=== PATIENT | male | born 2000 | race African-American/Black ===

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

== ENCOUNTER 2023-02-17 09:52 | Inpatient (IN) | payer OTHER ==
[2023-02-17] MEDS ORDERED: IBUPROFEN 600 MG TABLET (FP) PO ONE ×2 (11:31→11:40)
[2023-02-17] MEDS ORDERED: ACETAMINOPHEN 500 MG TABLET (FP) PO ONE (11:31)
[2023-02-17] MEDS ORDERED: CYCLOBENZAPRINE HCL 10 MG TABLET (FP) PO ONE (11:31)
[2023-02-17] MEDS ORDERED: CYCLOBENZAPRINE HCL 10 MG TABLET (FP) ONE (11:40)
[2023-02-17] MEDS ORDERED: ACETAMINOPHEN 500 MG TABLET (FP) ONE (11:40)
[2023-02-17 12:21] LABS: HEMATOCRIT 40.3 % (35.4-49); HEMOGLOBIN 13.3 GM/dL (11.7-16.9); MCH 29.7 pg (25.7-33.7); MEAN CELL VOLUME 89.7 fl (80-96); PLATELET COUNT 124 10^3/uL (134-434); WHITE BLOOD COUNT 18.1 K/mm3 (4.0-10.0)
[2023-02-17 12:36] LABS: POTASSIUM 3.7 mmol/L (3.5-5.1)
[2023-02-17 12:42] LABS: CALCIUM 8.6 mg/dL (8.5-10.1)
[2023-02-17 12:43] LABS: ALBUMIN 3.4 g/dl (3.4-5.0); BLOOD UREA NITROGEN 10.6 mg/dL (7-18)
[2023-02-17 12:48] LABS: BILIRUBIN,TOTAL 1.2 mg/dL (0.2-1); TOT PROT 7.4 g/dl (6.4-8.2)
[2023-02-17] MEDS ORDERED: SODIUM CHLORIDE 0.9% 500 ML INFUS.BAG IV ONE ×2 (13:08→13:26)
[2023-02-17 13:09] LABS: ANISOCYTOSIS 0; MACROCYTOSIS 0
[2023-02-17] MEDS ORDERED: POTASSIUM CHLORIDE ORAL LIQUID 20 MEQ/15 ML PO ONE (13:27)
[2023-02-17] MEDS ORDERED: AMPICILLIN NA/SULBACTAM NA 3 GM in SODIUM CHLORIDE 100 ML IVPB ONE (13:27)
[2023-02-17] MEDS ORDERED: POTASSIUM CHLORIDE TABS 20 MEQ TABLET.ER (FP) PO ONE ×2 (14:00→14:09)
[2023-02-17] MEDS ORDERED: AMPICILLIN NA/SULBACTAM NA 3 GM VIAL ONE (14:00)
[2023-02-17 15:46] LABS: POTASSIUM 3.1 mmol/L (3.5-5.1)
[2023-02-17 15:48] LABS: CALCIUM 8.4 mg/dL (8.5-10.1)
[2023-02-17 15:49] LABS: BLOOD UREA NITROGEN 12.6 mg/dL (7-18)
[2023-02-17 15:52] LABS: CREATININE 0.9 mg/dL (0.55-1.3)
[2023-02-17] MEDS ORDERED: ACETAMINOPHEN 1000 MG/100 ML BAG IVPB PRN (18:06)
[2023-02-17] MEDS: SODIUM CHLORIDE 1,000 ML IV SCH (19:06)
[2023-02-18] MEDS ORDERED: IBUPROFEN 400 MG TABLET (FP) PO ONE (01:13)
[2023-02-18] MEDS: IBUPROFEN 400 MG TABLET (FP) PO PRN ×3 (01:14→21:32)
[2023-02-18] MEDS ORDERED: ceFAZolin SODIUM 1 GM VIAL ONE (02:22)
[2023-02-18] MEDS: CEFAZOLIN 1 GM in DEXTROSE 5%-WATER - 50 ML IVPB SCH ×3 (02:31→17:34)
[2023-02-18 03:56] VITALS: BMI 22.6
[2023-02-18] MEDS: SODIUM CHLORIDE 1,000 ML IV SCH ×3 (04:31→23:45)
[2023-02-18 09:27] LABS: HEMATOCRIT 37.5 % (35.4-49); HEMOGLOBIN 12.1 GM/dL (11.7-16.9); MCH 29.1 pg (25.7-33.7); MCHC 32.3 g/dl (32.0-35.9); MEAN PLT VOLUME 10.3 fl (7.5-11.1); PLATELET COUNT 121 10^3/uL (134-434); RBC 4.16 M/mm3 (4.00-5.60); RDW 14.5 % (11.9-15.9); WHITE BLOOD COUNT 17.4 K/mm3 (4.0-10.0)
[2023-02-18 09:53] LABS: CHLORIDE 94 mmol/L (98-107); SODIUM 135 mmol/L (136-145)
[2023-02-18 09:59] LABS: CALCIUM 8.1 mg/dL (8.5-10.1)
[2023-02-18 10:00] LABS: ALBUMIN 2.7 g/dl (3.4-5.0); CO2 33 mmol/L (21-32); GLUCOSE,RANDOM 91 mg/dL (74-106); MAGNESIUM 2.9 mg/dL (1.8-2.4)
[2023-02-18] MEDS ORDERED: ENOXAPARIN NA (PORCINE) 40 MG/0.4 ML DISP.SYRIN SQ SCH (10:00)
[2023-02-18 10:02] LABS: PHOSPHOROUS 2.7 mg/dL (2.5-4.9)
[2023-02-18 10:03] LABS: CREATININE 0.8 mg/dL (0.55-1.3); SGOT/AST 30 U/L (15-37)
[2023-02-18 10:04] LABS: BILIRUBIN,TOTAL 0.8 mg/dL (0.2-1)
[2023-02-18 10:05] LABS: ALK PHOS 99 U/L (45-117)
[2023-02-18 10:20] LABS: ANION GAP 8 mmol/L (4-13); POTASSIUM 2.9 mmol/L (3.5-5.1); SGPT/ALT 28 U/L (13-61)
[2023-02-18 10:50] LABS: ANISOCYTOSIS 0; MACROCYTOSIS 0
[2023-02-18] MEDS ORDERED: OSELTAMIVIR PHOSPHATE 45 MG CAPSULE PO SCH (11:00)
[2023-02-18] MEDS ORDERED: POTASSIUM CHLORIDE ORAL LIQUID 20 MEQ/15 ML PO ONE (12:00)
[2023-02-18] MEDS ORDERED: KCL 10 MEQ IVPB 10 MEQ/100 ML INFUS.BAG IVPB SCH (12:00)
[2023-02-18] MEDS: OSELTAMIVIR PHOSPHATE 75 MG CAPSULE PO SCH ×2 (12:25→21:26)
[2023-02-18] MEDS ORDERED: AMPICILLIN NA/SULBACTAM NA 3 GM VIAL ONE (18:56)
[2023-02-18] MEDS: AMPICILLIN NA/SULBACTAM NA 3 GM in SODIUM CHLORIDE 100 ML IVPB SCH (19:00)
[2023-02-18] MEDS: BACITRACIN ZINC 15 GM TUBE TOPICAL OINTMENT TP SCH (21:26)
[2023-02-19] MEDS: AMPICILLIN NA/SULBACTAM NA 3 GM in SODIUM CHLORIDE 100 ML IVPB SCH ×3 (01:05→17:36)
[2023-02-19] MEDS: SODIUM CHLORIDE 1,000 ML IV SCH (08:19)
[2023-02-19] MEDS: IBUPROFEN 400 MG TABLET (FP) PO PRN (09:05)
[2023-02-19] MEDS: BACITRACIN ZINC 15 GM TUBE TOPICAL OINTMENT TP SCH ×2 (09:28→21:40)
[2023-02-19 10:16] LABS: VENOUS BASE EXCESS 5.4 mmol/L (-2-2); VENOUS O2 SATURATION 62.8 % (70-80); VENOUS PCO2 50.6 mmHg (38-52); VENOUS PH 7.411 (7.310-7.410)
[2023-02-19 10:38] LABS: POTASSIUM 3.3 mmol/L (3.5-5.1)
[2023-02-19] MEDS: OSELTAMIVIR PHOSPHATE 75 MG CAPSULE PO SCH ×2 (10:38→21:39)
[2023-02-19 10:43] LABS: ALBUMIN 2.8 g/dl (3.4-5.0)
[2023-02-19 10:44] LABS: BLOOD UREA NITROGEN 9.9 mg/dL (7-18); CALCIUM 8.8 mg/dL (8.5-10.1)
[2023-02-19 10:46] LABS: CREATININE 0.7 mg/dL (0.55-1.3)
[2023-02-19 10:47] LABS: TOT PROT 6.6 g/dl (6.4-8.2)
[2023-02-19 10:48] LABS: BILIRUBIN,TOTAL 0.7 mg/dL (0.2-1)
[2023-02-19 11:06] LABS: HEMATOCRIT 36.8 % (35.4-49); HEMOGLOBIN 11.9 GM/dL (11.7-16.9); MCH 29.5 pg (25.7-33.7); MCHC 32.5 g/dl (32.0-35.9); MEAN CELL VOLUME 90.7 fl (80-96); MEAN PLT VOLUME 10.5 fl (7.5-11.1); PLATELET COUNT 171 10^3/uL (134-434); RBC 4.05 M/mm3 (4.00-5.60); RDW 14.8 % (11.9-15.9); WHITE BLOOD COUNT 16.7 K/mm3 (4.0-10.0)
[2023-02-19 11:49] LABS: ANISOCYTOSIS 0; HELMET CELLS 0; HOWELL-JOLLY BODIES 0; MACROCYTOSIS 0; OVALOCYTE 0; ROULEAU 0; SICKELED CELLS 0; TARGET CELLS 0; TEAR DROP CELLS 0; TOXIC GRANULATION 0
[2023-02-19] MEDS: POTASSIUM CHLORIDE ORAL LIQUID 20 MEQ/15 ML PO SCH ×2 (13:18→21:39)
[2023-02-20] MEDS: AMPICILLIN NA/SULBACTAM NA 3 GM in SODIUM CHLORIDE 100 ML IVPB SCH ×3 (01:21→17:38)
[2023-02-20] MEDS: OSELTAMIVIR PHOSPHATE 75 MG CAPSULE PO SCH ×2 (09:12→21:16)
[2023-02-20] MEDS: BACITRACIN ZINC 15 GM TUBE TOPICAL OINTMENT TP SCH ×2 (09:12→21:17)
[2023-02-20] MEDS ORDERED: POTASSIUM CHLORIDE TABS 20 MEQ TABLET.ER (FP) PO ONE (10:22)
[2023-02-20 10:43] LABS: HEMATOCRIT 36.9 % (35.4-49); HEMOGLOBIN 12.1 GM/dL (11.7-16.9); MCH 29.6 pg (25.7-33.7); MCHC 32.8 g/dl (32.0-35.9); MEAN PLT VOLUME 9.4 fl (7.5-11.1); PLATELET COUNT 255 10^3/uL (134-434); RDW 15.1 % (11.9-15.9); WHITE BLOOD COUNT 13.1 K/mm3 (4.0-10.0)
[2023-02-20 11:07] LABS: CALCIUM 8.8 mg/dL (8.5-10.1)
[2023-02-20 11:08] LABS: ALBUMIN 2.8 g/dl (3.4-5.0); BLOOD UREA NITROGEN 7.9 mg/dL (7-18); MAGNESIUM 2.3 mg/dL (1.8-2.4)
[2023-02-20 11:11] LABS: CREATININE 0.8 mg/dL (0.55-1.3); PHOSPHOROUS 3.5 mg/dL (2.5-4.9)
[2023-02-20 11:12] LABS: TOT PROT 6.7 g/dl (6.4-8.2)
[2023-02-20 11:13] LABS: BILIRUBIN,TOTAL 0.5 mg/dL (0.2-1)
[2023-02-20 12:13] LABS: ANISOCYTOSIS 0; HELMET CELLS 0; HOWELL-JOLLY BODIES 0; MACROCYTOSIS 0; OVALOCYTE 0; ROULEAU 0; SICKELED CELLS 0; TARGET CELLS 0; TEAR DROP CELLS 0; TOXIC GRANULATION 0
[2023-02-20] MEDS: IBUPROFEN 400 MG TABLET (FP) PO PRN (21:16)
[2023-02-21] MEDS: AMPICILLIN NA/SULBACTAM NA 3 GM in SODIUM CHLORIDE 100 ML IVPB SCH ×3 (01:22→18:22)
[2023-02-21] MEDS: BACITRACIN ZINC 15 GM TUBE TOPICAL OINTMENT TP SCH ×2 (10:23→22:18)
[2023-02-21] MEDS: OSELTAMIVIR PHOSPHATE 75 MG CAPSULE PO SCH ×2 (10:23→22:17)
[2023-02-21 10:33] LABS: INR 1.29 (0.83-1.09); PROTHROMBIN TIME (PATIENT) 14.9 SEC (9.7-13.0)
[2023-02-21 10:34] LABS: ACTIVATED PTT 29.6 SECONDS (25.2-36.5)
[2023-02-21 10:40] LABS: POTASSIUM 4.6 mmol/L (3.5-5.1)
[2023-02-21 10:43] LABS: BLOOD UREA NITROGEN 11.9 mg/dL (7-18); CALCIUM 9.1 mg/dL (8.5-10.1); MAGNESIUM 2.5 mg/dL (1.8-2.4)
[2023-02-21 10:46] LABS: CREATININE 0.8 mg/dL (0.55-1.3)
[2023-02-21 10:48] LABS: BILIRUBIN,TOTAL 0.7 mg/dL (0.2-1); TOT PROT 7.4 g/dl (6.4-8.2)
[2023-02-21 11:49] LABS: HEMATOCRIT 39.9 % (35.4-49); HEMOGLOBIN 13.2 GM/dL (11.7-16.9); MCH 29.9 pg (25.7-33.7); MCHC 33.2 g/dl (32.0-35.9); MEAN CELL VOLUME 89.9 fl (80-96); PLATELET COUNT 330 10^3/uL (134-434); RBC 4.44 M/mm3 (4.00-5.60); RDW 15.2 % (11.9-15.9)
[2023-02-21 13:13] LABS: ANISOCYTOSIS 0; MACROCYTOSIS 0
[2023-02-21] MEDS ORDERED: MIDAZOLAM HCL 2 MG/2 ML SINGLE DOSE VIAL ONE ×3 (13:50→15:12)
[2023-02-21] MEDS ORDERED: BUPIVACAINE HCL/PF 0.25% (2.5MG/ML) 10 ML VIAL ONE (14:30)
[2023-02-21] MEDS ORDERED: KETOROLAC TROMETHAMINE 30 MG/1 ML VIAL ONE (14:55)
[2023-02-21] MEDS ORDERED: PROPOFOL 40 ML ONE (14:56)
[2023-02-21] MEDS ORDERED: ONDANSETRON 4 MG/2 ML VIAL ONE (14:56)
[2023-02-21] MEDS ORDERED: DEXAMETHASONE SOD PHOSPHATE 4 MG/1 ML VIAL ONE ×2 (14:57)
[2023-02-21] MEDS ORDERED: BUPIVACAINE HCL/PF 0.25% (2.5MG/ML) 10 ML VIAL IJ ONE ×2 (15:31)
[2023-02-21] MEDS ORDERED: LACTATED RINGERS SOLUTION 1,000 ML IV SCH (16:15)
[2023-02-21] MEDS ORDERED: IBUPROFEN 400 MG TABLET (FP) PO PRN (16:56)
[2023-02-21 17:40] VITALS: RESP 18
[2023-02-22] MEDS: AMPICILLIN NA/SULBACTAM NA 3 GM in SODIUM CHLORIDE 100 ML IVPB SCH ×2 (01:15→10:36)
[2023-02-22 09:51] LABS: HEMATOCRIT 37.8 % (35.4-49); HEMOGLOBIN 12.5 GM/dL (11.7-16.9); MCH 29.5 pg (25.7-33.7); MCHC 33.1 g/dl (32.0-35.9); MEAN PLT VOLUME 8.5 fl (7.5-11.1); PLATELET COUNT 370 10^3/uL (134-434); RBC 4.25 M/mm3 (4.00-5.60); WHITE BLOOD COUNT 14.9 K/mm3 (4.0-10.0)
[2023-02-22 09:58] LABS: POTASSIUM 3.6 mmol/L (3.5-5.1)
[2023-02-22 10:15] LABS: ALBUMIN 3.1 g/dl (3.4-5.0); BLOOD UREA NITROGEN 15.2 mg/dL (7-18); CALCIUM 8.9 mg/dL (8.5-10.1); MAGNESIUM 2.2 mg/dL (1.8-2.4)
[2023-02-22 10:18] LABS: PHOSPHOROUS 3.8 mg/dL (2.5-4.9)
[2023-02-22 10:20] LABS: BILIRUBIN,TOTAL 0.7 mg/dL (0.2-1); TOT PROT 7.6 g/dl (6.4-8.2)
[2023-02-22] MEDS: BACITRACIN ZINC 15 GM TUBE TOPICAL OINTMENT TP SCH (10:36)
[2023-02-22] MEDS: OSELTAMIVIR PHOSPHATE 75 MG CAPSULE PO SCH (10:47)
[2023-02-22 12:17] VITALS: BP 120/73; PULSE 72; TEMP 98.8
== END 2023-02-22 11:53 | disposition home or self-care (01) | DRG 385 ==
LOC: JERFT 09:52 → JERBED 16:18 → UNDOADMOB 16:18 → INTOOBSV 16:18 → JERBED 18:04 → J8W 02-18 03:15 → J6S 02-18 23:41 → OBSVTOIN 02-21 10:02
PROVIDERS: ADMIT Internal Medicine; ATTEND Internal Medicine
PROC: 0JBL0ZZ Excision of Right Upper Leg Subcutaneous Tissue and Fascia, Open Approach (ICD-10-PCS; principal; 2023-02-21 16:30)
DX: L72.3 Sebaceous cyst (principal); L03.113 Cellulitis of right upper limb; E87.1 Hypo-osmolality and hyponatremia; L02.519 Cutaneous abscess of unspecified hand; E87.3 Alkalosis; E87.6 Hypokalemia; D72.829 Elevated white blood cell count, unspecified; F12.90 Cannabis use, unspecified, uncomplicated; J10.1 Influenza due to other identified influenza virus with other respiratory manifestations
CPT/HCPCS: 0241U-QW; 36415; 73130-TC-RT-FY; 73701-TC-RT; 76882-TC-RT-FY; 80048; 80053; 82803; 83036; 83735; 84100; 84132; 85025; 85027; 85610; 85730; 86140; 86850; 86900; 86901; 87081; 88304-TC; 93005; 93010; 94760; 99285-25; G0378; Q9967

== ENCOUNTER 2023-02-25 23:17 | Inpatient (IN) | payer OTHER ==
[2023-02-25 23:24] VITALS: BMI 23.0
[2023-02-26] MEDS ORDERED: AMPICILLIN NA/SULBACTAM NA 3 GM in SODIUM CHLORIDE 100 ML IVPB ONE (04:04)
[2023-02-26] MEDS ORDERED: AMPICILLIN NA/SULBACTAM NA 3 GM VIAL ONE (04:18)
[2023-02-26 04:32] LABS: BASO % 0.6 % (0-2.0); HEMATOCRIT 34.7 % (35.4-49); HEMOGLOBIN 11.3 GM/dL (11.7-16.9); LYMPH % 43.7 % (8-40); MCH 29.5 pg (25.7-33.7); MCHC 32.7 g/dl (32.0-35.9); MEAN CELL VOLUME 90.3 fl (80-96); MEAN PLT VOLUME 7.3 fl (7.5-11.1); NEUT % 44.7 % (42.8-82.8); PLATELET COUNT 399 10^3/uL (134-434); RBC 3.85 M/mm3 (4.00-5.60); RDW 15.4 % (11.9-15.9); WHITE BLOOD COUNT 8.3 K/mm3 (4.0-10.0)
[2023-02-26 04:56] LABS: POTASSIUM 4.1 mmol/L (3.5-5.1)
[2023-02-26 04:58] LABS: CALCIUM 9.3 mg/dL (8.5-10.1)
[2023-02-26 04:59] LABS: ALBUMIN 3.3 g/dl (3.4-5.0); BLOOD UREA NITROGEN 14.4 mg/dL (7-18)
[2023-02-26 05:02] LABS: CREATININE 0.8 mg/dL (0.55-1.3)
[2023-02-26 05:04] LABS: BILIRUBIN,TOTAL 0.4 mg/dL (0.2-1); TOT PROT 7.2 g/dl (6.4-8.2)
[2023-02-26 06:22] VITALS: BP 123/63; PULSE 67; RESP 14; TEMP 98.5
[2023-02-26 06:28] LABS: BASO % 0.6 % (0-2.0); EOS % 1.4 % (0-4.5); HEMATOCRIT 34.1 % (35.4-49); LYMPH % 37.3 % (8-40); MCH 29.6 pg (25.7-33.7); MCHC 32.3 g/dl (32.0-35.9); MEAN CELL VOLUME 91.8 fl (80-96); MEAN PLT VOLUME 7.6 fl (7.5-11.1); MONO % 7.5 % (3.8-10.2); NEUT % 53.2 % (42.8-82.8); PLATELET COUNT 365 10^3/uL (134-434); RBC 3.72 M/mm3 (4.00-5.60); RDW 15.3 % (11.9-15.9); WHITE BLOOD COUNT 9.6 K/mm3 (4.0-10.0)
[2023-02-26 06:46] LABS: POTASSIUM 3.9 mmol/L (3.5-5.1)
[2023-02-26 06:50] LABS: ALBUMIN 2.9 g/dl (3.4-5.0); BLOOD UREA NITROGEN 13.8 mg/dL (7-18); MAGNESIUM 2.2 mg/dL (1.8-2.4)
[2023-02-26 06:52] LABS: PHOSPHOROUS 4.3 mg/dL (2.5-4.9)
[2023-02-26 06:53] LABS: BILIRUBIN,TOTAL 0.5 mg/dL (0.2-1); TOT PROT 6.7 g/dl (6.4-8.2)
[2023-02-26] MEDS ORDERED: RAPID SEQUENCE INTUBATION KIT NR ONE (06:54)
[2023-02-26 11:31] LABS: ERYTHROCYTE SEDIMENTATION RATE 13 mm/hr (0-10)
== END 2023-02-26 17:40 | disposition home or self-care (01) | DRG 813 ==
LOC: JER 23:17 → JERBED 02-26 04:07
PROVIDERS: ADMIT Internal Medicine
PROC: 0Y9C0ZZ Drainage of Right Upper Leg, Open Approach (ICD-10-PCS; principal; 2023-02-26)
DX: M96.842 Postprocedural seroma of a musculoskeletal structure following a musculoskeletal system procedure (principal); Y83.8 Other surgical procedures as the cause of abnormal reaction of the patient, or of later complication, without mention of misadventure at the time of the procedure; F12.90 Cannabis use, unspecified, uncomplicated; F17.210 Nicotine dependence, cigarettes, uncomplicated
CPT/HCPCS: 0241U-QW; 36415; 76882-TC-RT; 80053; 83735; 84100; 85025; 85651; 86140; 93005; 93010; 99285-25

== ENCOUNTER 2023-03-15 10:33 | Emergency (ER) | payer OTHER ==
[2023-03-15 10:39] VITALS: BP 116/69; PULSE 89; RESP 20; TEMP 97.7; BMI 24.8
[2023-03-15] MEDS ORDERED: BACITRACIN ZINC 15 GM TUBE TOPICAL OINTMENT ONE (12:30)
== END 2023-03-15 12:51 | disposition home or self-care (01) ==
LOC: JERFT 10:33
PROC: 0H9HXZZ Drainage of Right Upper Leg Skin, External Approach (ICD-10-PCS; principal; 2023-03-15)
DX: L02.415 Cutaneous abscess of right lower limb (principal); L72.0 Epidermal cyst; M79.89 Other specified soft tissue disorders
CPT/HCPCS: 99282-25